=== PATIENT | female | born 2000 | race Hispanic/Latino ===

== ENCOUNTER 2021-08-25 09:16 | Outpatient (CLI) | payer SELFPAY ==
[2021-08-25 23:51] LABS: SARS-CoV-2 PCR by NAA Not Detected (NotDetected)
== END 2021-08-25 09:17 | disposition home or self-care (01) ==
LOC: CSHLAB 09:16
PROVIDERS: ATTEND Emergency Medicine
DX: Z20.822 Contact with and (suspected) exposure to COVID-19 (principal)
CPT/HCPCS: U0003; U0005

== ENCOUNTER 2021-08-28 19:45 | Inpatient (IN) | payer MEDICAID, OTHER, SELFPAY ==
[2021-08-28] MEDS ORDERED: hydrALAZINE 20 MG/ML VIAL SLOW IVP PRN (21:33)
[2021-08-28] MEDS ORDERED: Butorphanol Tartrate 1 MG/ML VIAL SLOW IVP PRN (21:33)
[2021-08-28] MEDS ORDERED: Acetaminophen 500 MG TAB PO PRN (21:33)
[2021-08-28] MEDS ORDERED: Lidocaine 1% (PF) 30 ML VIAL SC PRN (21:33)
[2021-08-28] MEDS ORDERED: Ondansetron PF 4 MG/2 ML Vial IVP PRN (21:33)
[2021-08-28] MEDS ORDERED: Ibuprofen 800 MG TAB PO PRN (21:33)
[2021-08-28] MEDS ORDERED: Promethazine HCl 25 MG/ML VIAL IM PRN (21:33)
[2021-08-28] MEDS ORDERED: Misoprostol 200 MCG TAB PR PRN (21:33)
[2021-08-28] MEDS ORDERED: NS w/ Oxytocin 30 units 500 ML IV SCH ×2 (21:45)
[2021-08-28] MEDS ORDERED: Misoprostol 100 MCG TAB VAG SCH (22:00)
[2021-08-28] MEDS ORDERED: Lactated Ringer's 1,000 ML IV SCH (22:30)
[2021-08-28 22:52] LABS: HBSAg Index 0.16 S/CO (0-0.99)
[2021-08-28 22:56] LABS: Hemoglobin 10.3 g/dL (12.0-15.5); Mean Corpuscular HGB CONC 32.6 g/dL (32.0-36.0); Mean Corpuscular Hemoglobin 26.7 pg (27.0-33.0); Mean Corpuscular Volume 81.9 fl (81.6-98.3); Mean Platelet Volume 12.1 fl (7.4-10.4); Platelet Count 285 10x3/uL (150-450); RBC Distribution Width 13.6 % (11.5-14.5); Red Blood Cell (RBC) Count 3.86 10x6/uL (3.90-5.03); White Blood Cell (WBC) Count 12.2 10x3/uL (3.5-10.5)
[2021-08-28 23:29] LABS: Hep B Surf Ag Non-Reactive S/CO (NonReactive); Syphilis Antibody Nonreactive (Nonreactive); Syphilis Antibody Index 0.04 S/CO (<1.00 Non-Reactive)
[2021-08-28 23:40] VITALS: BMI 34.7
[2021-08-29] MEDS ORDERED: Fentanyl 2 mcg/Bup 0.1% Cadd 100 ML ONE (03:03)
[2021-08-29] MEDS ORDERED: Ondansetron PF 4 MG/2 ML Vial IVP PRN ×3 (03:51→23:23)
[2021-08-29] MEDS ORDERED: Naloxone HCl 0.4 mg/ml Vial IVP PRN ×4 (03:51→17:02)
[2021-08-29] MEDS ORDERED: ePHEDrine Sulfate 50 MG/10 ML VIAL SLOW IVP PRN (03:51)
[2021-08-29] MEDS ORDERED: Acetaminophen 325 MG TAB PO PRN ×2 (03:51→23:23)
[2021-08-29] MEDS ORDERED: Lactated Ringer's 500 ML IV PRN (03:51)
[2021-08-29] MEDS ORDERED: Promethazine HCl 25 MG/ML VIAL IM PRN ×2 (03:51→17:02)
[2021-08-29] MEDS ORDERED: diphenhydrAMINE 50 MG/ML VIAL IVP PRN ×2 (03:51→17:02)
[2021-08-29] MEDS ORDERED: Hydrocerin (Eucerin) Cream 120 gm Jar TOP PRN ×2 (03:51→17:02)
[2021-08-29] MEDS ORDERED: Fentanyl 2 mcg/Bupivacaine 0.1% Cassette 100 ML EPIDURAL SCH (04:00)
[2021-08-29] MEDS ORDERED: Communication Order-Pharmacy FS SCH ×2 (04:00→17:15)
[2021-08-29] MEDS ORDERED: ePHEDrine Sulfate 50 MG/10 ML VIAL ONE (15:00)
[2021-08-29] MEDS ORDERED: Lidocaine 2% MPF 10 ML AMP (For Epidural Use) ONE (15:00)
[2021-08-29] MEDS ORDERED: Ketorolac Tromethamine 30 MG/ML VIAL ONE (15:11)
[2021-08-29] MEDS ORDERED: Azithromycin 500 MG VIAL ONE (15:19)
[2021-08-29] MEDS ORDERED: Fentanyl 100 MCG/2 ML VIAL ONE ×2 (15:50→17:32)
[2021-08-29] MEDS ORDERED: Ketamine 50 MG/ML (10ML VIAL) ONE (15:54)
[2021-08-29] MEDS ORDERED: Meperidine HCl/PF 25 MG/ML VIAL ONE (15:58)
[2021-08-29] MEDS ORDERED: Oxytocin 10 UNITS/ML VIAL ONE (16:00)
[2021-08-29] MEDS ORDERED: Promethazine HCl 25 MG SUPP PR PRN (17:02)
[2021-08-29] MEDS ORDERED: Fentanyl 100 MCG/2 ML VIAL SLOW IVP PRN (17:02)
[2021-08-29] MEDS ORDERED: Naloxone HCl 0.4 mg/ml Vial IV PRN (17:02)
[2021-08-29] MEDS ORDERED: Ondansetron HCl/PF 4 MG/2 ML Vial IVP PRN (17:02)
[2021-08-29 17:04] LABS: Hemoglobin 9.4 g/dL (12.0-15.5)
[2021-08-29] MEDS ORDERED: ceFAZolin 2 GM/Dextrose 50 ML IVPB ONE (17:11)
[2021-08-29] MEDS ORDERED: Ketorolac Tromethamine 30 MG/ML VIAL IVP SCH (17:15)
[2021-08-29] MEDS ORDERED: HYDROmorphone 0.5 MG/0.5 ML SYRINGE SLOW IVP PRN (18:09)
[2021-08-29] MEDS: Lactated Ringer's 1,000 ML IV SCH (19:21)
[2021-08-29] MEDS: Ketorolac Tromethamine 30 MG/ML VIAL IVP PRN (23:05)
[2021-08-29] MEDS ORDERED: diphenhydrAMINE 25 MG CAP PO PRN (23:23)
[2021-08-29] MEDS ORDERED: Boostrix 0.5 ML (Tdap) VIAL IM ONE (23:23)
[2021-08-29] MEDS ORDERED: Misoprostol 200 MCG TAB PR PRN (23:23)
[2021-08-29] MEDS ORDERED: Simethicone Chewable 80 MG TAB PO PRN (23:23)
[2021-08-29] MEDS ORDERED: NS w/ Oxytocin 30 units 500 ML IV SCH (23:23)
[2021-08-29] MEDS ORDERED: hydrALAZINE 20 MG/ML VIAL SLOW IVP PRN (23:23)
[2021-08-30] MEDS: Docusate 100 MG CAP PO SCH ×3 (03:13→21:06)
[2021-08-30] MEDS: Ferrous Sulfate 325 MG TAB PO SCH ×3 (03:13→21:09)
[2021-08-30] MEDS: Lactated Ringer's 1,000 ML IV SCH ×4 (04:38→13:28)
[2021-08-30 04:56] LABS: #Neutrophils 14.8 10x3/uL (1.5-8.4); %Basophils 0.2 % (0.0-2.0); %Eosinophils 0.1 % (0.0-6.0); %Lymphocytes 9.5 % (18.0-47.0); %Monocytes 5.7 % (0.0-10.0); %Neutrophils 84.2 % (40.0-75.0); Hemoglobin 8.2 g/dL (12.0-15.5); Mean Corpuscular HGB CONC 32.4 g/dL (32.0-36.0); Mean Corpuscular Hemoglobin 27.2 pg (27.0-33.0); Mean Corpuscular Volume 83.8 fl (81.6-98.3); Mean Platelet Volume 12.1 fl (7.4-10.4); Platelet Count 208 10x3/uL (150-450); RBC Distribution Width 13.8 % (11.5-14.5); Red Blood Cell (RBC) Count 3.02 10x6/uL (3.90-5.03); White Blood Cell (WBC) Count 17.6 10x3/uL (3.5-10.5)
[2021-08-30] MEDS ORDERED: Fentanyl 100 MCG/2 ML VIAL SLOW IVP PRN (05:15)
[2021-08-30] MEDS ORDERED: HYDROmorphone 2 MG/ML VIAL SLOW IVP PRN (05:15)
[2021-08-30] MEDS: Ketorolac Tromethamine 30 MG/ML VIAL IVP PRN ×2 (05:39→11:52)
[2021-08-30] MEDS: Prenatal Vitamin 1 TAB PO SCH (09:52)
[2021-08-30] MEDS ORDERED: HYDROcodone/Acetaminophen 5/325 mg Tablet PO PRN (12:02)
[2021-08-30] MEDS: Ibuprofen 800 MG TAB PO SCH (21:06)
[2021-08-30] MEDS ORDERED: Ibuprofen 800 MG TAB PO PRN (23:00)
[2021-08-31] MEDS: Lactated Ringer's 1,000 ML IV SCH ×3 (04:42→16:24)
[2021-08-31] MEDS: Ibuprofen 800 MG TAB PO SCH ×2 (06:35→13:43)
[2021-08-31 07:51] LABS: Mean Corpuscular HGB CONC 33.1 g/dL (32.0-36.0); Mean Corpuscular Hemoglobin 27.4 pg (27.0-33.0); Mean Corpuscular Volume 82.9 fl (81.6-98.3); Mean Platelet Volume 11.9 fl (7.4-10.4); Platelet Count 214 10x3/uL (150-450); RBC Distribution Width 14.1 % (11.5-14.5); Red Blood Cell (RBC) Count 2.92 10x6/uL (3.90-5.03)
[2021-08-31] MEDS ORDERED: Bupivacaine/Epinephrine 0.25% 30 ML VIAL ONE (08:00)
[2021-08-31] MEDS ORDERED: Terbutaline Sulfate 1 MG/ML VIAL ONE (08:00)
[2021-08-31] MEDS: Docusate 100 MG CAP PO SCH (08:56)
[2021-08-31] MEDS: Ferrous Sulfate 325 MG TAB PO SCH (08:56)
[2021-08-31] MEDS: Prenatal Vitamin 1 TAB PO SCH (08:56)
[2021-08-31 11:43] VITALS: BP 107/56; TEMP 98.1
[2021-08-31] MEDS ORDERED: Glycopyrrolate 0.2 MG/ML 5 ML SYRINGE ONE (12:37)
[2021-08-31] MEDS ORDERED: PROPOFOL 20 ML ONE (12:40)
== END 2021-08-31 16:17 | disposition home or self-care (01) | DRG 787 ==
LOC: CSHLD 20:56 → CSHPP 08-30 00:44
PROVIDERS: ADMIT Emergency Medicine; ATTEND Emergency Medicine
PROC: 10D00Z1 Extraction of Products of Conception, Low, Open Approach (ICD-10-PCS; principal; 2021-08-29)
PROC: 0U7C7ZZ Dilation of Cervix, Via Natural or Artificial Opening (ICD-10-PCS; 2021-08-29)
PROC: 3E033VJ Introduction of Other Hormone into Peripheral Vein, Percutaneous Approach (ICD-10-PCS; 2021-08-29)
PROC: 10H07YZ Insertion of Other Device into Products of Conception, Via Natural or Artificial Opening (ICD-10-PCS; 2021-08-29)
PROC: 0W3R0ZZ Control Bleeding in Genitourinary Tract, Open Approach (ICD-10-PCS; 2021-08-29)
DX: O99.02 Anemia complicating childbirth (principal); O72.2 Delayed and secondary postpartum hemorrhage; O75.2 Pyrexia during labor, not elsewhere classified; D64.9 Anemia, unspecified; Z3A.39 39 weeks gestation of pregnancy; Z37.0 Single live birth; Z79.82 Long term (current) use of aspirin; O76 Abnormality in fetal heart rate and rhythm complicating labor and delivery; O75.4 Other complications of obstetric surgery and procedures; R00.0 Tachycardia, unspecified; O69.81X0 Labor and delivery complicated by cord around neck, without compression, not applicable or unspecified; O32.8XX0 Maternal care for other malpresentation of fetus, not applicable or unspecified
CPT/HCPCS: 36415; 51702; 85014; 85018; 85027; 86780; 86850; 86900; 86901; 87340; J1170; J1885; J2175; J2590; J2704; J3010; J3105; J7120